=== PATIENT | female | born 1995 | race Caucasian/White ===

== ENCOUNTER 2022-01-03 08:35 | Emergency (ER) | payer SELFPAY ==
[2022-01-03 08:53] VITALS: BP 131/85
--- NOTE | 2022-01-03 09:30 | ED Physician Documentation ---
PD HPI URI - Stated complaint Stated Complaint: RT EAR PX/THROAT PX - Chief complaint Chief Complaint: General - History obtained from History obtained from: Patient - History of Present Illness Timing - onset: How many weeks ago (1) Timing duration: Weeks (1) Timing details: Gradual onset, Still present Associated symptoms: Ear pain, Nasal congestion, Rhinorrhea, Sore throat, Dry cough Contributing factors: Sick contact Improves by: Rest, Medication, MDI/nebulizer Worsened by: Activity Similar symptoms before: Diagnosis (otitis and bronchitis with asthma) Recently seen: Not recently seen - Additional information Additional information: Previously well 26-year-old Isha Michele has developed a cough and congestion over the past week. She felt that she had a cold she developed a little bit of a sore throat with this. She has had to use her inhaler 2-3 times in the past week. This morning she awoke with right ear pain and this prompted her visit to the emergency department the pain is bad. She has had this previously. Review of Systems Constitutional: reports: Chills, Fatigue. denies: Fever Eyes: denies: Decreased vision Ears: reports: Ear pain Nose: reports: Rhinorrhea / runny nose, Congestion Throat: reports: Sore throat Cardiac: denies: Chest pain / pressure, Palpitations Respiratory: reports: Cough. denies: Dyspnea GI: denies: Vomiting, Diarrhea : denies: Dysuria PD PAST MEDICAL HISTORY - Present Medications Home Medications: Ambulatory Orders Medication Instructions Recorded Confirmed Albuterol Sulf [Ventolin Hfa 1 - 2 puffs INH Q4HR PRN 01/03/22 01/03/22 Inhaler] Azithromycin [Zithromax] 250 mg PO DAILY #6 tablet 01/03/22 - Allergies Allergies/Adverse Reactions: Allergies Allergy/AdvReac Type Severity Reaction Status Date / Time No Known Drug Allergies Allergy Verified 01/03/22 08:47 PD ED PE NORMAL - Vitals Vital signs reviewed: Yes - General General: Alert and oriented X 3, Well developed/nourished, Other (clutching the right ear. ) - HEENT HEENT: Atraumatic, PERRL, EOMI, Other (R TM is not visible secondary to cerumen. The left is inflamed with indistinct landmarks. mild pharyngeal erythema..) - Neck Neck: Supple, no meningeal sign, No bony TTP, Other (shoddy adenopathy bilat ) - Cardiac Cardiac: RRR, No murmur - Respiratory Respiratory: No respiratory distress, Clear bilaterally - Abdomen Abdomen: Soft, Non tender - Back Back: No CVA TTP, No spinal TTP - Derm Derm: Normal color, Warm and dry, No rash - Extremities Extremities: No deformity, No edema - Neuro Neuro: Alert and oriented X 3, debug technician 2-12 intact, No motor deficit, No sensory deficit, Normal speech Eye Opening: Spontaneous Motor: Obeys Commands Verbal: Oriented GCS Score: 15 - Psych Psych: Normal mood, Normal affect Results - Vitals Vitals: Vital Signs - 24 hr 01/03/22 08:48 Temperature 36.2 C L Heart Rate 83 Respiratory 18 Rate Blood Pressure 131/85 H O2 Saturation 99 Oxygen O2 Source Room air PD MEDICAL DECISION MAKING - ED course Complexity details: considered differential, d/w patient ED course: 26-year-old female with a viral URI that has a complicating otitis presents to the emergency department with severe ear pain. She appears uncomfortable in the emergency department and we have provided her with an injection of Toradol and we have provided a dose of dexamethasone we will place the patient on some antibiotic for treatment of otitis. Departure - Departure Disposition: 01 Home, Self Care Clinical Impression: Otitis media Qualifiers: Otitis media type: suppurative Chronicity: acute Laterality: bilateral Recurrence: not specified as recurrent Spontaneous tympanic membrane rupture: without spontaneous rupture Qualified Code(s): H66.003 - Acute suppurative otitis media without spontaneous rupture of ear drum, bilateral Condition: Stable Instructions: ED Otitis Media Acute Adult Follow-Up: Raymond Berumen MD [Provider Admit Priv/Credential] - Prescriptions: Azithromycin [Zithromax] 250 mg PO DAILY #6 tablet Comments: Isha, today this looks like you have an ear infection that is a complication of a viral respiratory infection. Our expectation is improved pain and drainage with the medications we have given today. If for some reason you have worsening of your symptoms I have given you a number of a doctor in [place] to follow-up with. Your medications have been e-scribed to [facility] in [place].
[2022-01-03] MEDS ORDERED: DEXAMETHASONE 10 MG/ML VIAL PO STA (10:14)
[2022-01-03] MEDS ORDERED: CHERRY SYRUP 10 ML UDC PO ONE (10:14)
[2022-01-03] MEDS ORDERED: KETOROLAC 30 MG/ML VIAL IM STA (10:14)
== END 2022-01-03 11:01 | disposition home or self-care (01) ==
LOC: ED 08:35
DX: H66.003 Acute suppurative otitis media without spontaneous rupture of ear drum, bilateral (principal); J06.9 Acute upper respiratory infection, unspecified
CPT/HCPCS: 96372; 99282; 99283; A9270

== ENCOUNTER 2022-07-15 14:31 | Outpatient (CLI) | payer MEDICAID ==
--- NOTE | 2022-07-16 09:44 | Ultrasound Report ---
PROCEDURE: Pelvic w/Transvaginal INDICATIONS: IRREGULAR MENSES TECHNIQUE: Real-time scanning was performed of the pelvic organs, with image documentation. Additional endovagi nal scanning was necessary due to incomplete visualization of the adnexal and endometrial structures by transabdominal scanning. COMPARISON: None. FINDINGS: Uterus: Uterus is anteverted and normal in size at 7.9 x 3.2 x 4.3 cm. The myometrium is homogeneou s. The endometrium measures 3.6 mm in combined thickness. Ovaries: The right ovary measures 3.4 x 2.7 x 3.9 cm, with a calculated ovarian volume of 18.7 cc. The left ovary measures 3.9 x 2.7 x 3.2 cm, with a calculated ovarian volume of 17.3 cc. The ovaries have a normal sonographic appearance. Greater than 12 follicles can be seen in each ovary. No adnex al masses are seen. No cystic lesions measuring greater than 3 cm. Other: No pathologic free abdominal or pelvic fluid. IMPRESSION: 1. Normal uterus. 2. Greater than 12 follicles in each ovaries. Recommend clinical correlation for polycystic ovaries. Reviewed by: Medhat Ramey MD on 07/16/2022 9:42 AM PDT Approved by: Medhat Ramey MD on 07/16/2022 9:42 AM PDT Station ID: [id number]
== END 2022-07-15 14:32 | disposition home or self-care (01) ==
LOC: DI 14:31
PROVIDERS: ATTEND Physician Assistant
DX: N92.6 Irregular menstruation, unspecified (principal)